=== PATIENT | male | born 1980 ===

== ENCOUNTER → 2020-11-30 00:18 | Outpatient (CLI) | payer OTHER, SELFPAY ==
[2020-11-30 17:04] LABS: SARS-CoV-2 RNA PCR Negative
== END ==
PROVIDERS: Visit Provider Internal Medicine Critical Care Medicine
DX: R68.89 Other general symptoms and signs (principal); Z20.822 Contact with and (suspected) exposure to COVID-19
CPT/HCPCS: C9803; U0003; U0005

== ENCOUNTER 2020-12-02 08:00 | Outpatient (CLI) | payer OTHER, SELFPAY ==
--- NOTE | 2020-12-21 10:50 | WPDSLEEPSTUD ---
Sleep Study Date of Study: 12/02/20 Ordering Provider: Prakash Camacho APRN Interpreting Physician: Meghna Cote MD Sleep Study Type: Polysomnogram Height: 2.01 m Weight: 72.575 kg Body Mass Index: 18.0 Neck Circumference (inches): 17 Mahomet: 9 Reason for Sleep Study Insomnia, loud snoring Sleep History Kalyan Shi is a 40-year-old male with increased snoring over the last 5-6 years. His snoring is loud enough that it can be heard throughout the house. This keeps his awake. She often tries to reposition him so that he will stop snoring. Neither 1 of them were getting good sleep. Just during the last 6 months his blood pressure has gone up especially when he is resting. He he feels there is more anxiety associated with sleep recently. He has difficulty falling asleep only when he is really stressed out over something. 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 He does not awaken from sleep feeling short of breath and does not awake at night with heartburn belching or coughing. He always snores and it is always loud enough that others complain about it. He rarely has trouble sleep with a cold. He does not wake up gasping for breath at night. He does not have breathing problems at night observed by others. He does not sweat excessively at night. Only over the last 6-8 months he has noticed his heart pounding or beating irregularly at night. He does not fall asleep during the day, does not fall asleep involuntarily and does not fall asleep while driving. He does not have loss of muscle tone was strong emotion. He does not have daytime difficulties due to excessive sleepiness. He does not feel paralyzed on waking or falling asleep. He rarely has vivid dreamlike scenes upon awakening or falling asleep. He is never afraid to go to sleep. He rarely has nightmares. He occasionally remembers his dreams. He frequently has racing thoughts. He does not feel sad or depressed. He frequently has anxiety, worries about things. He rarely has muscular tension. He occasionally notices parts of his body jerking. He rarely kicks at night. He does not have crawling and aching feelings in his legs. He denies any kind of leg pain at night. He does not have morning jaw pain and does not grind his teeth during sleep. He rarely is bothered by low back pain during the day. He is not awakened by pain at night. He rarely wakes up feeling stiff in the morning. He rarely wakes up with sore achy muscles and pain in the spine and joints. He has occasional morning headaches, occasional palpitations, and feels unable to relax. Normal bedtime is between 10:00 p.m. and 11:00 p.m. taking about 30 minutes to fall asleep. He typically wakes 3-4 times during the night. On average, he stays awake between 5 minutes and 20 minutes. 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 While awake, he has a trip to the bathroom 1-2 times, otherwise tries to get comfortable, get a drink, reposition and as a last resort, may read. He wakes the morning at 6:00 a.m. On the weekend, he goes to bed between 11:00 p.m. and 12 midnight, waking between 8:00 a.m. and 10:00 a.m.. He estimates getting 6-7 hours of sleep at night. He does not take naps in the afternoon or evening. A short nap 10 or 15 minutes might be refreshing. Occasionally he feels refreshed on waking. He feels better in the morning compared to other times a day. Habits: Never smoked. Caffeine 1 coffee per day. Alcohol on the weekends maybe 1 drink per week. No recreational drugs. He has used melatonin at times to help with sleep quality. He sleeps on his stomach and snores in this position as well. A dentist noted a crowded airway. His has not witnessed him stopping breathing during sleep. [facility] Past Medical History Medical History (Updated 12/21/20 @ 11:38 by Meghna Cote MD) History of DVT (deep vein thrombosis) DVT rep
[2020-12-21 11:03] VITALS: BMI 18.0
== END 2020-12-02 08:01 | disposition home or self-care (01) ==
LOC: ANHCSM 08:00
PROVIDERS: Visit Provider Nurse Practitioner Family
DX: R06.83 Snoring (principal); G47.00 Insomnia, unspecified
CPT/HCPCS: 95810